=== PATIENT | female | born 1965 | race Caucasian/White ===

== ENCOUNTER 2016-12-21 00:13 | Emergency (ER) | payer SELFPAY ==
[~2016-12-21] VITALS: Ht 177.8 cm; Wt 77.1 kg
[2016-12-21 00:25] VITALS: BP 130/75
[2016-12-21] MEDS ORDERED: NKM (00:25)
[2016-12-21 01:06] LABS: MEAN CORPUSCULAR HEMOGLOBIN 27.2 PG (27.0-31.0); MEAN CORPUSCULAR HGB CONC 35.5 G/DL (32.0-36.0); MEAN CORPUSCULAR VOLUME 77 FL (80-99); MEAN PLATELET VOLUME 6.6 FL (6.5-10.1); PLATELET COUNT 414 K/UL (150-450); RED BLOOD COUNT 5.55 M/UL (4.20-5.40); RED CELL DISTRIBUTION WIDTH 12.5 % (11.6-14.8); WHITE BLOOD COUNT 21.7 K/UL (4.8-10.8)
[2016-12-21 01:30] LABS: ALANINE AMINOTRANSFERASE 17 U/L (3-33); ALBUMIN/GLOBULIN RATIO 1.2 (1.0-2.7); ANION GAP 16 (5-15); ASPARTATE AMINO TRANSFERASE 15 U/L (5-40); CALCIUM 8.9 mg/dL (8.6-10.2); CARBON DIOXIDE 29 mEQ/L (20-30); CHLORIDE 83 mEQ/L (98-107); CREATININE 0.8 mg/dL (0.5-0.9); GLOMERULAR FILTRATION RATE > 60 mL/min (>60); HEMOLYSIS 4; LIPASE 42 U/L (< 60); POTASSIUM 3.3 mEQ/L (3.4-4.9); SODIUM 128 mEQ/L (135-145); TOTAL PROTEIN 7.2 g/dL (6.6-8.7)
[2016-12-21 02:20] VITALS: BP 128/76
--- NOTE | 2016-12-21 03:43 | Emergency Room Report ---
History of Present Illness General Chief Complaint: Vomiting Source: Patient Present Illness HPI Is a 51-year-old female with no past medical history. She hasn't seen a Dr. prolonged period time. She presents with chief complaint abdominal pain with vomiting and diarrhea. Onset last night. Pain is crampy in nature. Diffuse. No fever or chills. Vomiting is nonbloody and nonbilious. Diarrhea is watery. Allergies: Coded Allergies: No Known Allergies (Unverified , 12/21/16) Patient History Past Medical History: none, see triage record, old chart reviewed Past Surgical History: none Pertinent Family History: none Social History: Denies: smoking Now: No Immunizations: other Reviewed Nursing Documentation: PMH: Agreed, PSxH: Agreed Nursing Documentation-PMH Past Medical History: No Stated History Review of Systems Eye: Denies: blurred vision, eye pain ENT: Denies: ear pain, nose congestion, throat swelling Respiratory: Denies: cough, shortness of breath Cardiovascular: Denies: chest pain, palpitations Gastrointestinal: Reports: abdominal pain, diarrhea, nausea, vomiting Musculoskeletal: Denies: back pain, joint pain Skin: Denies: rash Neurological: Denies: headache, numbness Endocrine: Denies: increased thirst, increased urine Hematologic/Lymphatic: Denies: easy bruising All Other Systems: negative except mentioned in HPI Physical Exam Vital Signs Date Time Temp Pulse Resp B/P Pulse Ox O2 Delivery O2 Flow Rate FiO2 12/21/16 00:19 99.0 98 20 139/94 97 Room Air labs unremarkable Sp02 EP Interpretation: reviewed, normal General Appearance: well appearing, no apparent distress, alert Head: normocephalic, atraumatic Eyes: bilateral eye EOMI, bilateral eye PERRL ENT: hearing grossly normal, normal pharynx Neck: full range of motion, supple, no meningismus Respiratory: chest non-tender, lungs clear, normal breath sounds Cardiovascular #1: regular rate, rhythm, no murmur Gastrointestinal: normal bowel sounds, no mass, no organomegaly, no bruit, non- distended, tenderness - Diffuse Musculoskeletal: back normal, gait/station normal, normal range of motion Psychiatric: mood/affect normal Skin: warm/dry Medical Decision Making Diagnostic Impression: Primary Impression: Abdominal pain Qualified Codes: R10.84 - Generalized abdominal pain Additional Impressions: Inguinal hernia of right side with obstruction and without gangrene Nausea vomiting and diarrhea Hyponatremia UTI (urinary tract infection) Qualified Codes: N30.00 - Acute cystitis without hematuria ER Course Patient present with abdominal pain with vomiting and diarrhea. CT scan is unremarkable. She has not given a urine sample for over 2 hours. Right now I see no evidence of acute abdomen. No medical quadrant pain. Pain is better. Most likely a viral e learning developer that he has been seeing in the community. We'll give a urine sample to make sure there is no infectious cause that maybe antibiotics. Lab Results Impression labs with leukocytosis Rhythm Strip Diag. Results EP Interpretation: yes Rate: 88 Rhythm: NSR, no PVC's, no ectopy CT/MRI/US Diagnostic Results CT/MRI/US Diagnostic Results : Imaging Test Ordered: CT abdomen and pelvis Impression Read by radiologist. Normal appendix. Left renal cyst. Left inguinal hernia. Last Vital Signs Date Time Temp Pulse Resp B/P Pulse Ox O2 Delivery O2 Flow Rate FiO2 12/21/16 00:25 98.7 79 28 130/75 98 Room Air Status: improved Disposition: HOME, SELF-CARE Condition: Stable Scripts Cephalexin* (KEFLEX*) 500 Mg Capsule 500 MG ORAL TID, #21 CAP 0 Refills Prov: CURT SUN M.D. 12/21/16 Ibuprofen* (MOTRIN*) 600 Mg Tablet 600 MG ORAL THREE TIMES A DAY, #30 TAB 0 Refills Prov: CURT SUN M.D. 12/21/16 Patient Instructions: Nausea and Vomiting, Adult Additional Instructions: Followup your DrErin in 2-3 days. Return if symptom worsen. CURT SUN M.D. Dec 21, 2016 03:43
[2016-12-21 04:15] VITALS: BP 132/78
[2016-12-21 04:15] LABS: APPEARANCE,URINE CLEAR; KETONES,URINE NEGATIVE (NEGATIVE); LEUKOCYTE ESTERASE ,URINE NEGATIVE (NEGATIVE); NITRITE,URINE NEGATIVE (NEGATIVE); PH,URINE 7 (4.5-8.0); PROTEIN,URINE NEGATIVE (NEGATIVE); UROBILINOGEN,URINE NORMAL MG/DL (0.0-1.0)
[2016-12-21 04:31] LABS: BACTERIA,URINE MANY /HPF; SQUAMOUS EPITHELIAL CELL,UR OCCASIONAL /LPF (NONE/OCC)
[2016-12-21] MEDS ORDERED: cefTRIAXone 1 GM in NS 55 ML IVPB ONE (04:45)
[2016-12-21] MEDS ORDERED: IBUPROFEN600 MG ORAL (05:12)
[2016-12-21] MEDS ORDERED: KEFLEX500 MG ORAL (05:12)
[2016-12-21 05:25] VITALS: BP 135/80
[2016-12-21 08:12] LABS: BAND NEUTROPHILS % (MANUAL) 1 % (0-8); BASOPHILS % (MANUAL) 0 % (0-2); EOSINOPHILS % (MANUAL) 1 % (0-3); LYMPHOCYTES % (MANUAL) 9 % (20-45); NEUTROPHILS % (MANUAL) 83 % (45-75); PLATELET ESTIMATE ADEQUATE; PLATELET MORPHOLOGY NORMAL; TOTAL CELLS COUNTED 100
[2016-12-21 08:13] LABS: MICROCYTES OCCASIONAL
--- NOTE | 2016-12-21 10:45 | Diagnostic Imaging Report ---
CT Abdomen/Pelvis with Intravenous Contrast INDICATION: Vomiting. COMPARISON: None TECHNIQUE: Serial axial images were obtained from the lung bases through the symphysis pubis after intravenous administration of contrast. Coronal and sagittal reformats were obtained. Dose Estimate: Total DLP 1105 mGycm CTDIvol 22 mGy FINDINGS: The visualized lung bases exhibit mild atelectasis or scarring. There is a 7 x 13 mm nodule in the posterior medial right lower lobe. The heart is normal in size. Bilateral breast prostheses are partially imaged. Small fat filled umbilical hernia is identified. Increased stranding of the subcutaneous tissues in the pelvis may represent body wall edema. Subcutaneous hematoma and/or cellulitis are differential considerations. Tiny sub-5 mm low-attenuation lesions in the liver are nonspecific but may represent small cysts. Ill-defined low-attenuation region adjacent to the falciform ligament may represent focal fatty infiltration. Mild layering echogenic material in the proximal gallbladder may represent sludge. The pancreas, spleen and adrenal glands are unremarkable. There is a 2.5 cm cyst in the upper left kidney. Other tiny low-attenuation renal lesions are nonspecific. No calculus is identified within either kidney, along the expected course of the ureters or within the urinary bladder. There is no evidence of hydronephrosis or asymmetric perirenal inflammatory change. The urinary bladder is grossly unremarkable. The pelvic organs are grossly unremarkable. There is a 6.5 x 4.5 cm partially imaged left inguinal hernia containing a loop of the sigmoid colon. The colon is otherwise not distended for optimal evaluation. No evidence of acute appendicitis. There is no evidence of obstruction. There is no extraluminal gas or fluid. Several prominent periaortic lymph nodes are noted. There is no significant calcified atherosclerotic disease of the the abdominal aorta. The osseous structures are unremarkable. Impression: 1. Large, partially imaged left inguinal hernia containing a loop of the sigmoid colon. No distinct evidence of bowel obstruction. 2. Prominent periaortic lymph nodes are nonspecific. Please correlate with clinical parameters and consider short-term followup CT, particularly if there is concern for malignancy. 3. Suspected gallbladder sludge. No CT evidence of acute cholecystitis. 4. Probable 2.5 cm left renal cyst. No hydronephrosis. Subcentimeter hypodense renal and liver lesions are nonspecific but may represent cysts. 5. Probable subcutaneous edema overlying bilateral buttocks. Cellulitis is not excluded. 6. Nonspecific 7 x 13 mm right lower lobe nodule. Consider chest CT in 6-9 months for further evaluation.
== END 2016-12-21 05:25 | disposition home or self-care (01) ==
LOC: EMR 00:55
DX: R10.84 Generalized abdominal pain (principal); K40.30 Unilateral inguinal hernia, with obstruction, without gangrene, not specified as recurrent; R11.2 Nausea with vomiting, unspecified; R19.7 Diarrhea, unspecified; E87.1 Hypo-osmolality and hyponatremia; N30.00 Acute cystitis without hematuria; D72.829 Elevated white blood cell count, unspecified; N28.1 Cyst of kidney, acquired
CPT/HCPCS: 36415; 74177; 80053; 80300; 81003; 83690; 85007; 85025; 87086; 87181; 96360; 96361; 96374; 96375; 99284; J0696; J2405; Q9967